=== PATIENT | female | born 1945 | race Caucasian/White ===

== ENCOUNTER 2023-06-29 09:05 | Emergency (ER) | payer OTHER, SELFPAY ==
[2023-06-29] VITALS (9 sets, daily range): BP systolic 137–157; BP diastolic 87–107; BMI 38.0
--- NOTE | 2023-06-29 09:34 | ED.GENMED ---
History of Present Illness
General
Chief Complaint: Dizziness
Source: patient and family
Exam Limitations: none
Time Seen by Provider: 06/29/23 09:07
Nursing documentation reviewed up to this point in time: agreed with
Travel History
Have you had any contact with someone who has COVID-19?: No
Do you have any symptoms of coronavirus? Fever > 100 degrees, chills, cough, shortness of breath, sore throat, loss of taste or smell, muscle aches, or headache?: No
History of Present Illness
History of Present Illness:
77 yr old female presents to the ER for evaluation. Patient has had runny nose for the past several days. Today however she was in bed turned and felt sudden room spinning sensation. Family called EMS because patient was yelling that she did not
feel well. She had no associated headache. Patient has history of prior CVA w/ right-sided weakness. Patient denied any associated headache, recent trauma or fall.
Patient presented to the ER asymptomatic. She denies any recent illness or trauma.
Past History
Past History
ED Past Medical History: None
Social History
Tobacco: Non-smoker
Alcohol: None
Family History
Family History: Negative Diabetes, Hypertension or CAD
Review of Systems
Review of Systems
Allergies reviewed?: Yes
Other source history: family
All Other Systems: ROS reviewed and negative except as documented in HPI and ROS
Constitutional: Reports no symptoms; Denies fever, fatigue or chills
EENT: Reports no symptoms
Respiratory: Reports no symptoms
Cardiac: Reports no symptoms
ABD/GI: Reports no symptoms
Skin: Reports no symptoms
Neurological: Reports dizzy (room spinning sensation )
Psychiatric: Reports no symptoms
Phy Exam
General Physical Exam
General Presentation: no apparent distress
General age: appears stated age
General Skin: warm and dry
General Habitus: normal
General Mental: alert
General Hydration: dry mucous membranes
Eye Exam
Eye Exam: PERRL, EOMI and other (no nystagmus b/l )
Eye Exam General: PERRL: bilateral and EOM intact: bilateral
Pupil Exam: Bilateral: round and reactive
Cardiovascular Exam
Cardiovascular Exam: tachycardia
Pulmonary Exam
Pulmonary Exam: lungs clear and no respiratory distress
Neurological Exam
Neurological Exam: alert and oriented x3
[place] Coma Scale
Eye Opening: Spontaneous
Verbal Response: Oriented
Motor Response: Obeys Commands
GCS Total Score: 15
Musculoskeletal Exam
Musculoskeletal Exam: full ROM
Skin Exam
Skin Exam: normal color and warm/dry
Course
Orders/Labs/Results
Orders:
Orders
06/29/23 09:30
EKG [Electrocardiogram (*1)] Urgent
Reason for Study: Tachycardia
EKG- Treatment ONCE
06/29/23 09:43
COVID-19 Antigen Urgent
Source: Nasal Swab
Complete Blood Count/With Diff Urgent
Comprehensive Metabolic Panel Urgent
Influenza A+B Rapid Molecular Urgent
MADDY Source: Nasal Swab
Specimen Description:
06/29/23 09:44
0.9% Sodium Chloride 1000 ml [Nss] 1,000 ml IV BOLUS
06/29/23 09:48
CT Head W/o Iv Contrast Urgent
Comment:
Reason For Exam: vertigo
Abnormal Lab Results
06/29/23
09:43
MPV 11.5 H fL
(7.4-10.4)
Absolute Neuts (auto) 6.8 H 10^3/uL
(1.4-6.5)
Neutrophils % 78.2 H %
(42.2-75.2)
Lymphocytes % 14.8 L %
(20.5-51.1)
Glucose 193 H mg/dl
(70-99)
06/29/23 09:43
06/29/23 09:43
Vital Signs
Initial and Last Documented VS:
Initial Vital Signs
Pulse Resp BP
114 15 141/107
06/29/23 09:12 06/29/23 09:12 06/29/23 09:12
Last Documented Vital Signs
Temp Pulse Resp BP Pulse Ox
97.7 F 99 11 152/91 97
06/29/23 09:13 06/29/23 14:00 06/29/23 14:00 06/29/23 14:00 06/29/23 14:00
Principal Consulting Engineer consulted with Physician
Principal Consulting Engineer consulted with physician?: Yes
Name of Physician Consulted: Jae
MDM/Problems Addressed
Differential Diagnosis Includes:
Not limited to benign positional vertigo
MDM/Problems Addressed:
Patient is a 77-year-old female who presented to the ER with episode of vertigo. She has had cold symptoms for the past several days however denies any fevers. Here in the ER patient has been asymptomatic and has not had any vertigo. Symptoms
have not reoccurred. She had no associated trauma or headache. She presents awake alert with a normal neurologic exam no nystagmus.
CT head neg patient is afebrile with a normal white count, unremarkable chemistries negative COVID negative influenza negative CT head. Patient was given fluids as she appeared minimally dry. She reports she did not eat or take any of her
medications today. Patient is minimally tachycardic here however again has not taken any of her medications including nifedipine. Otherwise she she is well-appearing in no acute distress feels well enough to go home. She was able to ambulate with
her cane steadily.
will d/c w/ meclizine as needed
*Radiology
Radiology exam reviewed: radiology read reviewed (CAT scans negative for acute hemorrhage no evidence to suggest acute large vascular territory infarct)
*Pulse Oximetry
Patient hypoxic: no
*Critical Care Note
Total Time (30-74mins, 75-104mins- exclusive of procedures): Not Applicable
ED Attending Note
-
Portions of this chart may have been created with voice recognition software.� Occasional wrong word or��sound alike� substitutions may have occurred due to the inherent limitations of voice recognition software.
Discharge Plan
Departure
Patient Disposition: Home (Routine Discharge)
Date of Disposition: 06/29/23
Time of Disposition: 14:17
Patient with high blood pressure during this ER visit?: Yes
Covid-19: Negative COVID-19
Discharge Problem:
Vertigo
Instructions: Vertigo (a Type of Dizziness) (DC), BLOOD PRESSURE
Prescriptions:
New
meclizine 25 mg tablet
25 mg PO TID PRN (Reason: dizziness) Qty: 10 0RF
No Action
metformin 500 mg Tablet
500 mg PO BID@0800,1700 Qty: 60 0RF
acetaminophen 325 mg Tablet
650 mg PO Q6HPRN PRN (Reason: pain) Qty: 100 0RF
atorvastatin 20 mg Tablet
20 mg PO QPM Qty: 30 0RF
nifedipine 30 mg Tablet Extended Release
30 mg PO BID Qty: 60 0RF
aspirin 81 mg Tablet,Delayed Release (Dr/Ec)
81 mg PO DAILY 30 Days Qty: 30 0RF
losartan 25 mg Tablet
25 mg PO DAILY 30 Days Qty: 30 0RF
Referrals:
Ebonie De La Rosa, DO [Family Provider] -
Activity Restrictions/Additional Instructions:
As discussed a prescription for meclizine was sent to pharmacy. Take as directed.
Stay well-hydrated. Take all of your prescribed medications when you go home
Follow-up with your family doctor in the next several days and return if any worsening of symptoms.
Interventions
Interventions:
*Risk Screen - Suicide Last Done: 06/29/23 09:13
*General Assessment Last Done: 06/29/23 09:13
*Neglect/Abuse Screening Last Done: 06/29/23 09:13
ED- Fall Risk Assessment Last Done: 06/29/23 09:20
*ED COVID-19 Vaccine History Last Done: 06/29/23 09:13
ED- Neurological Assessment Last Done: 06/29/23 09:20
ED- Cardiac Assessment Last Done: 06/29/23 09:20
ED Swallowing Screen Last Done: 06/29/23 09:20
[2023-06-29] MEDS: NSS 1000 IV (09:44)
[2023-06-29 09:56] LABS: % Basophils 0.2 % (0-2); % Eosinophils 0.8 % (0-6); % Immature Granulocytes 0.3 % (0-0.5); % Lymphocytes 14.8 % (20.5-51.1); % Monocytes 5.7 % (1.7-9.3); % Neutrophils 78.2 % (42.2-75.2); Absolute Eosinophils 0.1 10^3/uL (0-0.7); Absolute Lymphocytes 1.3 10^3/uL (1.2-3.4); Absolute Monocytes 0.5 10^3/uL (0.1-0.6); Absolute Neutrophils 6.8 10^3/uL (1.4-6.5); Mean Corp Hgb Conc. 34.2 g/dL (33.0-37.0); Mean Corpuscular Hgb 30.7 pg (27.0-31.0); Mean Corpuscular Volume 89.8 fL (81.0-99.0); Mean Platelet Volume 11.5 fL (7.4-10.4); Nucleated Red Blood Cells % 0 %; Platelet Count 210 10^3/uL (130-400); Red Blood Cell Count 4.23 10^6/uL (4.20-5.40); White Blood Cell Count 8.7 10^3/uL (4.8-10.8)
[2023-06-29 10:08] LABS: ALT (SGPT) 20 U/L (0-35); AST (SGOT) 23 U/L (14-36); Albumin 4.3 g/dl (3.5-5.0); Alkaline Phosphatase 83 U/L (38-126); Blood Urea Nitrogen 16 mg/dl (7-17); Calcium 9.3 mg/dl (8.4-10.2); Carbon Dioxide 24 mmol/L (22-30); Chloride 107 mmol/L (98-107); Estimated Creatinine Clearance 94 ml/min; Glucose 193 mg/dl (70-99); Potassium 3.6 mmol/L (3.5-5.1); Sodium 139 mmol/L (135-145); Total Bilirubin 1.3 mg/dl (0.2-1.3); Total Protein 6.9 g/dl (6.3-8.2); eGFR > 60.00
[2023-06-29 10:10] LABS: COVID-19 Antigen Negative (Negative)
== END 2023-06-29 15:07 | disposition home or self-care (01) ==
LOC: EMR 09:05
PROVIDERS: Nurse Practitioner; EMERGENCY PHYSICIAN Student in an Organized Health Care Education/Training Program; FAMILY PHYSICIAN Family Medicine
DX: R42 Dizziness and giddiness (principal); I69.351 Hemiplegia and hemiparesis following cerebral infarction affecting right dominant side; Z11.52 Encounter for screening for COVID-19
CPT/HCPCS: 99285; 96360; 70450; 80053; 85025; 87502; 87811; 93005